=== PATIENT | female | born 1960 | race Caucasian/White ===

== ENCOUNTER 2021-02-10 08:43 | Observation (INO) | payer OTHER ==
[~2021-02-10] VITALS: Ht 167.6 cm; Wt 113.4 kg
[2021-02-10 09:37] LABS: HEMOGLOBIN 14.7 gm/dl (12.3-15.3); RED BLOOD COUNT 4.93 M/UL (4.00-5.10); WHITE BLOOD COUNT 4.6 K/UL (4.5-11.0)
[2021-02-10 09:59] LABS: BUN/CREATININE RATIO 19 (0-10)
[2021-02-11 06:55] LABS: RED BLOOD COUNT 4.67 M/UL (4.00-5.10); WHITE BLOOD COUNT 5.3 K/UL (4.5-11.0)
[2021-02-11 07:37] LABS: BUN/CREATININE RATIO 30 (0-10)
== END 2021-02-11 15:52 | disposition home or self-care (01) ==
LOC: ER1 08:43 → 3 EAST 11:11 → CDU 11:11 → 3 EAST 20:18
PROVIDERS: Emergency Medicine; Physician Assistant Medical; ADMIT Internal Medicine Infectious Disease
DX: I10 Essential (primary) hypertension (principal); R07.89 Other chest pain; I25.10 Atherosclerotic heart disease of native coronary artery without angina pectoris; E11.9 Type 2 diabetes mellitus without complications; K22.70 Barrett's esophagus without dysplasia; K57.90 Diverticulosis of intestine, part unspecified, without perforation or abscess without bleeding; E66.9 Obesity, unspecified; Z68.41 Body mass index [BMI] 40.0-44.9, adult; Z20.822 Contact with and (suspected) exposure to COVID-19; Z95.5 Presence of coronary angioplasty implant and graft; Z90.49 Acquired absence of other specified parts of digestive tract; Z90.710 Acquired absence of both cervix and uterus; Z88.0 Allergy status to penicillin; Z79.4 Long term (current) use of insulin; Z79.899 Other long term (current) drug therapy
CPT/HCPCS: 36415; 71045; 80048; 82550; 82553; 82962; 83690; 83735; 83874; 84484; 85025; 85027; 93005; 96374; 99285; C9113; G0378; U0002

== ENCOUNTER → 2021-02-10 | Day surgery (SDC) | payer OTHER ==
[~2021-02-10] MED LIST: ATENOLOL50 MG PO; HYDROCODON-ACE1 EAC6 PO; LISINOPRIL10 MG PO; NOVOLOG MI100 UNIT/1 SQ; OMEPRAZOLE40 MG PO
== END | disposition home or self-care (01) ==
LOC: OR 06:57
DX: R07.9 Chest pain, unspecified (principal); R10.13 Epigastric pain; K92.0 Hematemesis; K59.09 Other constipation; E66.01 Morbid (severe) obesity due to excess calories; I10 Essential (primary) hypertension; K21.9 Gastro-esophageal reflux disease without esophagitis; Z88.0 Allergy status to penicillin; Z87.891 Personal history of nicotine dependence; Z90.49 Acquired absence of other specified parts of digestive tract; Z90.711 Acquired absence of uterus with remaining cervical stump; Z20.822 Contact with and (suspected) exposure to COVID-19; Z53.8 Procedure and treatment not carried out for other reasons
CPT/HCPCS: 82962; J2704; J7040

== ENCOUNTER 2021-04-20 12:37 | Observation (INO) | payer OTHER ==
[~2021-04-20] VITALS: Ht 170.2 cm; Wt 117.9 kg
[2021-04-20 13:26] LABS: HEMOGLOBIN 14.7 gm/dl (12.3-15.3); RED BLOOD COUNT 5.02 M/UL (4.00-5.10); WHITE BLOOD COUNT 7.2 K/UL (4.5-11.0)
[2021-04-20 14:01] LABS: BUN/CREATININE RATIO 25 (0-10)
[2021-04-20 16:11] LABS: BUN/CREATININE RATIO 18 (0-10)
[2021-04-21 03:20] LABS: HEMOGLOBIN 13.5 gm/dl (12.3-15.3); RED BLOOD COUNT 4.6 M/UL (4.00-5.10)
[2021-04-21 03:48] LABS: BUN/CREATININE RATIO 23 (0-10)
[2021-04-21] MEDS ORDERED: MECLIZINE HCL25 MG PO (11:14)
[2021-04-21] MEDS ORDERED: VITAMIN D21250 MCG PO (11:14)
[2021-04-21] MEDS ORDERED: NITROGLYCERIN0.4 MG SL (11:15)
[2021-04-21] MEDS ORDERED: AMLODIPINE BESY10 MG PO ×2 (11:15→17:41)
[2021-04-21] MEDS ORDERED: KLONOPIN TAB 00.5 MG PO (11:16)
[2021-04-21] MEDS ORDERED: HYDROCODON-ACE1 EAC6 PO (11:16)
[2021-04-21] MEDS ORDERED: LISINOPRIL40 MG PO (11:16)
[2021-04-21] MEDS ORDERED: ATORVASTATIN CA20 MG PO (17:33)
[2021-04-21] MEDS ORDERED: PROTONIX 40 MG40 M1 PO (17:33)
[2021-04-21] MEDS ORDERED: HYDRALAZINE HCL25 MG PO ×2 (17:34→17:41)
== END 2021-04-21 18:30 | disposition home or self-care (01) ==
LOC: ER1 12:37 → CDU 16:56 → CCU 16:56
PROVIDERS: Nurse Practitioner; Physician Assistant; ADMIT Internal Medicine
DX: I16.0 Hypertensive urgency (principal); R07.89 Other chest pain; E66.01 Morbid (severe) obesity due to excess calories; E87.5 Hyperkalemia; E11.9 Type 2 diabetes mellitus without complications; I11.9 Hypertensive heart disease without heart failure; Z90.49 Acquired absence of other specified parts of digestive tract; F41.9 Anxiety disorder, unspecified; Z88.1 Allergy status to other antibiotic agents; Z20.822 Contact with and (suspected) exposure to COVID-19; I25.10 Atherosclerotic heart disease of native coronary artery without angina pectoris; K21.9 Gastro-esophageal reflux disease without esophagitis; Z98.61 Coronary angioplasty status; Z79.4 Long term (current) use of insulin; Z68.41 Body mass index [BMI] 40.0-44.9, adult; Z79.82 Long term (current) use of aspirin
CPT/HCPCS: 0240U; 36415; 71045; 80053; 81001; 82550; 82553; 82962; 83735; 84484; 85025; 93005; 96374; 99285; G0378